=== PATIENT | male | born 1945 | race Hispanic/Latino ===

== ENCOUNTER → 2018-02-04 | Outpatient (CLI) | payer OTHER ==
[~2018-02-04] MED LIST: ACET-2743 PO; ATOR20TA65 PO; Aspirin PO; CALC667T5 PO; CELE200 PO; DILT240C3 PO; ERGO500014 PO; FOLI1TAB61 PO; HYDR-4154 PO; INSLAN SQ; INSU100C6 SQ; LISI40TA4 PO; OMEP20TA25 PO; OXYC5 PO; PREG25 PO; TYL3B PO
== END | disposition home or self-care (01) ==
LOC: SHCH 07:47
PROVIDERS: ATTEND Internal Medicine Cardiovascular Disease
DX: I25.10 Atherosclerotic heart disease of native coronary artery without angina pectoris (principal); I12.9 Hypertensive chronic kidney disease with stage 1 through stage 4 chronic kidney disease, or unspecified chronic kidney disease; E11.22 Type 2 diabetes mellitus with diabetic chronic kidney disease; N18.6 End stage renal disease
CPT/HCPCS: 93306

== ENCOUNTER → 2022-12-18 | Outpatient (CLI) | payer OTHER ==
[~2022-12-18] MED LIST changes: -CALC667T5 PO; +CALC667T6 PO; -DILT240C3 PO; +DILT240C97 PO; -LISI40TA4 PO; +LISI40TA9 PO; +OMEP20TA20 PO; -OMEP20TA25 PO
== END | disposition home or self-care (01) ==
LOC: SHCH 15:07
PROVIDERS: ATTEND Internal Medicine Cardiovascular Disease
DX: R09.89 Other specified symptoms and signs involving the circulatory and respiratory systems (principal)
CPT/HCPCS: 93880